=== PATIENT | female | born 1990 | race Caucasian/White ===

== ENCOUNTER 2016-12-07 16:40 | Emergency (ER) | payer SELFPAY ==
[2016-12-07 17:03] VITALS: BP 124/70; PULSE 57; TEMP 98; BMI 24.7
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
== END 2016-12-07 20:03 | disposition home or self-care (01) ==
LOC: JERFT 16:40
PROC: 0HQNXZZ Repair Left Foot Skin, External Approach (ICD-10-PCS; principal; 2016-12-07)
DX: S91.212A Laceration without foreign body of left great toe with damage to nail, initial encounter (principal); V04.10XA Pedestrian on foot injured in collision with heavy transport vehicle or bus in traffic accident, initial encounter; Y92.410 Unspecified street and highway as the place of occurrence of the external cause; Y93.89 Activity, other specified
CPT/HCPCS: 73630-TC-LT; 84703; 99282-25

== ENCOUNTER 2016-12-10 17:31 | Emergency (ER) | payer SELFPAY ==
[2016-12-10 17:50] VITALS: BP 108/73; PULSE 69; TEMP 98.2; BMI 28.3
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
== END 2016-12-10 19:15 | disposition home or self-care (01) ==
LOC: JERFT 17:31
DX: Z48.00 Encounter for change or removal of nonsurgical wound dressing (principal)
CPT/HCPCS: 99281-25